=== PATIENT | male | born 1965 | race Caucasian/White ===

== ENCOUNTER 2016-12-07 07:10 | Day surgery (SDC) | payer OTHER ==
[~2016-12-07] VITALS: Ht 193 cm; Wt 127.0 kg
[~2016-12-07 07:10] MED LIST: 0.9% Sodium Chloride 1,000 ML IV SCH; SIMV10TA4 PO; Sodium Chloride LOK Flush 10 mL Syringe IV PRN; fentaNYL-PF 50 mCg/mL 2 mL Inj IVPUSH PRN
[2016-12-07 07:58] VITALS: BP 122/77; PULSE 65; RESP 17; O2SAT 97
[2016-12-07 08:45] VITALS: BP 123/72; PULSE 62; RESP 14; O2SAT 95
[2016-12-07 08:58] VITALS: BP 113/77; PULSE 62; RESP 14; O2SAT 95
[2016-12-07 09:03] VITALS: BP 118/79; PULSE 65; RESP 14; O2SAT 98
--- NOTE | 2016-12-07 10:13 | ENDO ---
[address] [address] ENDOSCOPY PROCEDURE PATIENT: FREDY CARRASCO : 1965 MR#: [id number] ADMIT: 12/07/2016 JOB ID: [id number] PRIMARY PROVIDER: Antonio Recinos MD PROCEDURE: Colonoscopy with hot snare polypectomy and cold snare polypectomy. INDICATIONS: A 51-year-old male who has had diverticulitis and a challenging colonoscopy. He had a small adenoma removed from the rectum. He reports for a complete colonoscopy. He indicates that he has used antibiotics successfully on a number of occasions when feeling poorly. He did not do well with the ground flaxseed fiber. EQUIPMENT: Imsys-Elixr. SEDATION: 6 mg Versed, 150 mcg fentanyl. BOWEL PREPARATION: Fair at best. COMPLICATIONS: None identified. PROCEDURE INFORMATION: After the risks and benefits were explained, written and verbal informed consent was obtained. The patient was brought into the endoscopy suite and placed into the left lateral decubitus position. Sedation was achieved using the above stated medications with the addition of oxygen via nasal cannula. A digital rectal examination was accomplished. No significant pathology apart from some internal hemorrhoids noted. The scope was introduced into the rectum and advanced under direct visualization to the level of the cecum, as identified by the appendiceal orifice and ileocecal valve. The scope was slowly withdrawn to carefully examine the mucosa for any defects or lesions. Multiple direct views were made through the dentate line for exclusion of pathology. The colon was decompressed, the scope removed from the patient who tolerated the procedure well. FINDINGS: Scattered diverticula were seen in the sigmoid colon. Slightly tortuous sigmoid. In the left colon, there was a small polyp removed with hot snare. In the rectum, there were two small polyps, one removed with cold snare, one with hot snare. Maximum size of any of these three polyps was about 5-6 mm. The terminal ileum was interrogated and appeared visually normal. I did not see any evidence of inflammatory bowel disease. There were several areas where there was retained stool debris requiring copious amounts of irrigation. In some of these areas, small polyps could have been overlooked. ENDOSCOPIC DIAGNOSES: 1. Colon polyps. 2. Diverticulosis. 3. Hemorrhoids. RECOMMENDATIONS: 1. Await histopathology. 2. Repeat colonoscopy with an extra day of liquids in three years' time.
--- NOTE | 2016-12-11 10:08 | PATH ---
SURGICAL PATHOLOGY Attending Physician:Shannon Frazier CASE STATUS: Signed Out PATIENT NAME: FREDY CARRASCO PID: [id number] : 1965 DATE COLLECTED:12/07/2016 20:29 SPECIMEN: 1: Colon, Biopsy 2: Rectum, Biopsy CLINICAL HISTORY: 1). LEFT COLON POLYP 2). RECTAL POLYPS X2 FINAL DIAGNOSIS: 1.LEFT COLON POLYP: TUBULAR ADENOMA. 2.RECTAL POLYPS: HYPERPLASTIC POLYP. BENIGN INFLAMMATORY PSEUDOPOLYP. ICD10 CODE D12.4 GROSS DESCRIPTION: The specimen is received in two formalin filled containers labeled with the patient's name. 1). The specimen is sublabeled "left colon polyp" and consists of a 0.2 x 0.2 x 0.2 CM portion of tissue which is entirely submitted in cassette 1A. 2). The specimen is sublabeled "rectal polyps x2" and consists of 2 portions of tissue which aggregate to 0.3 x 0.3 x 0.3 CM. The specimen is entirely submitted in cassette 2A. 12/07/2016 [facility] MICRO DESCRIPTION: See diagnosis. ICD-9 CODES: CPT CODES: 1: 44649 2: 17699 Electronically Signed Out Binh La MD [facility] Pathology [facility] [address] [place] [address] Technical component performed at [facility], [address] [place] [address] Ave[address], [address]
== END 2016-12-07 23:59 | disposition home or self-care (01) ==
LOC: END 07:10
PROVIDERS: ATTEND Internal Medicine Gastroenterology
DX: D12.4 Benign neoplasm of descending colon (principal); K62.1 Rectal polyp; K57.30 Diverticulosis of large intestine without perforation or abscess without bleeding; R19.4 Change in bowel habit; K64.8 Other hemorrhoids
CPT/HCPCS: 45385; 99153; G0500; J2250; J3010; J7030